=== PATIENT | female | born 1940 | race Caucasian/White ===

== ENCOUNTER → 2017-02-19 | Outpatient (CLI) | payer MEDICARE, OTHER ==
[~2017-02-19] MED LIST: LEVO25TA2 PO
[2017-02-19 14:32] LABS: HEMATOCRIT 41.6 % (34.6-47.8); HEMOGLOBIN 13.9 g/dL (11.7-16.4); WHITE BLOOD COUNT 6.9 x10^3/uL (3.4-10)
== END | disposition home or self-care (01) ==
LOC: STAR 13:03
PROVIDERS: ATTEND Internal Medicine
DX: Z01.818 Encounter for other preprocedural examination (principal); R05 Cough; R09.82 Postnasal drip; E03.9 Hypothyroidism, unspecified; R79.1 Abnormal coagulation profile; Z88.0 Allergy status to penicillin
CPT/HCPCS: 36415; 85025; 85610; 85730

== ENCOUNTER 2017-02-28 07:50 | Day surgery (SDC) | payer MEDICARE, OTHER ==
[~2017-02-28] VITALS: Ht 165.1 cm; Wt 62.8 kg
[2017-02-28 08:30] VITALS: BP 112/75
[2017-02-28 08:33] VITALS: BP 112/75
[2017-02-28] MEDS ORDERED: VITAMINS (08:36)
[2017-02-28] MEDS ORDERED: MIDAZOLAM 1 MG/ML, 5ML ONE (09:14)
[2017-02-28] MEDS ORDERED: FENTANYL PF 100 MCG/2ML ONE (09:14)
[2017-02-28] MEDS ORDERED: LIDOCAINE 1%, 50ML ONE (14:00)
[2017-02-28] MEDS ORDERED: LIDOCAINE 4% TOPICAL SOLUTION 50 ML ONE (14:00)
== END 2017-02-28 12:45 ==
LOC: OUT 07:50
PROVIDERS: ATTEND Internal Medicine
DX: R05 Cough (principal); Z87.891 Personal history of nicotine dependence
CPT/HCPCS: 31622; 99152; 99153; J2250; J3010; J3490

== ENCOUNTER 2018-06-09 10:40 | Outpatient (CLI) | payer MEDICARE, OTHER ==
[~2018-06-09 10:40] MED LIST changes: +VITAMINS
== END 2018-06-09 23:59 | disposition home or self-care (01) ==
LOC: RAD 10:40
PROVIDERS: ATTEND Physician Assistant Medical
DX: F45.8 Other somatoform disorders (principal); R49.8 Other voice and resonance disorders; E03.9 Hypothyroidism, unspecified; Z95.0 Presence of cardiac pacemaker
CPT/HCPCS: 74230

== ENCOUNTER 2019-05-05 10:57 | Outpatient (CLI) | payer MEDICARE, OTHER | END 2019-05-05 23:59 | disposition home or self-care (01) | LOC: CFH 10:57 | PROVIDERS: ATTEND Internal Medicine | DX: J84.10 Pulmonary fibrosis, unspecified (principal); Z87.891 Personal history of nicotine dependence | CPT/HCPCS: 71250 ==

== ENCOUNTER 2020-01-19 05:37 | Day surgery (SDC) | payer MEDICARE, OTHER ==
[~2020-01-19] VITALS: Ht 165.1 cm; Wt 61.0 kg
[2020-01-19] MEDS ORDERED: CHLORHEXIDINE 15 ML UDC MM ONE (06:30)
[2020-01-19] MEDS ORDERED: LACTATED RINGERS 1,000 ML IV SCH (06:32)
[2020-01-19 06:44] VITALS: BP 101/65
[2020-01-19] MEDS ORDERED: LIDOCAINE 1%-EPI 1:100K, 20ML ONE (06:56)
[2020-01-19] MEDS ORDERED: LIDOCAINE-MPF 1%, 2ML INFIL ONE (07:00)
[2020-01-19] MEDS ORDERED: FENTANYL PF 100 MCG/2ML ONE (07:13)
[2020-01-19] MEDS ORDERED: PROPOFOL 10 MG/ML, 20ML ONE (07:14)
[2020-01-19] MEDS ORDERED: LIDOCAINE-MPF 2% ,5ML ONE (07:14)
[2020-01-19] MEDS ORDERED: SUCCINYLCHOLINE 20 MG/ML, 10ML ONE (07:14)
[2020-01-19] MEDS ORDERED: DEXAMETHASONE 4 MG/ML, 1ML ONE ×2 (07:29)
[2020-01-19] MEDS ORDERED: EPHEDRINE 50 MG/ML, 1ML ONE (07:38)
[2020-01-19] MEDS ORDERED: FENTANYL PF 100 MCG/2ML IV PRN (08:00)
[2020-01-19] MEDS ORDERED: ONDANSETRON 2MG/ML, 2ML IVPush PRN (08:00)
== END 2020-01-19 09:50 | disposition home or self-care (01) ==
LOC: OUT 05:37
PROVIDERS: ATTEND Otolaryngology
DX: J38.1 Polyp of vocal cord and larynx (principal); E03.9 Hypothyroidism, unspecified; Z20.828 Contact with and (suspected) exposure to other viral communicable diseases; Z88.0 Allergy status to penicillin; Z79.899 Other long term (current) drug therapy; Z72.89 Other problems related to lifestyle; Z87.891 Personal history of nicotine dependence
CPT/HCPCS: 31515; 87635; 93005; J0330; J1100; J2704; J3010; J3490; J7120